=== PATIENT | female | born 1935 | race Two or more races ===

== ENCOUNTER 2024-09-10 09:12 | Inpatient (IN) | payer OTHER ==
[~2024-09-10] VITALS: Ht 157.5 cm; Wt 59.0 kg
[2024-09-10] MEDS ORDERED: COZAAR100 MG PO (09:24)
[2024-09-10] MEDS ORDERED: CELEXA20 MG PO (09:25)
[2024-09-10] MEDS ORDERED: ZEGERID OTC 201 EACH PO (09:25)
[2024-09-10] MEDS ORDERED: SYNTHROID88 MCG PO (09:25)
[2024-09-10] MEDS ORDERED: RISPERIDONE O0.25 MG PO (09:26)
[2024-09-10] MEDS ORDERED: JARDIANCE25 MG PO (09:26)
[2024-09-10] MEDS ORDERED: ARICEPT10 MG PO (09:27)
[2024-09-10] MEDS ORDERED: TOPROL XL100 M1 PO (09:27)
[2024-09-10] MEDS ORDERED: CLOPIDOGREL BIS75 MG PO (09:28)
[2024-09-10] MEDS ORDERED: GLIPIZIDE XL10 MG PO (09:28)
[2024-09-10] MEDS ORDERED: DIVALPROEX SOD250 MG PO (09:29)
[2024-09-10] MEDS ORDERED: MEMANTINE HCL10 MG PO (09:29)
[2024-09-10] MEDS ORDERED: DOXAZOSIN MESYLA4 MG PO (09:32)
[2024-09-10] MEDS ORDERED: NORVASC2.5 MG PO (09:32)
[2024-09-10] MEDS ORDERED: SIMVASTATIN80 MG PO (09:33)
[2024-09-10] MEDS ORDERED: MELATONIN10 MG (09:33)
[2024-09-10] MEDS ORDERED: LANTUS SOL100 UNIT/1 SQ (09:33)
--- NOTE | 2024-09-10 09:34 | NUR ---
PACIENTE ALERTA Y ORIENTADA EN PERSONA EN COMPANIA DE FAMILIAR QUIEN Y EN AMBULANCIA QUIEN REFIERE QUE ES TR[facility]LADADA DE [facility] POR FRACTURA DE FEMUR EN LA PIERNA DERECHA. SE OBSERVA PACIENTE PREVIAMENTE CANALIZADA EN MANO DERECHA CON ANGIO #20 EL CUAL SE ENCUENTRA PATENTE, JUANA DE EDEMA Y ERITEMA. SE OBSERVA PACIENTE CON SONDA URINARIA A GRAVEDAD CON COLOR AMARILLO JEFFREY Y JUANA DE SANGRADO.
[2024-09-10] MEDS ORDERED: MEPERIDINE HCL/PF 50 MG/ML VIAL IM STA (10:30)
--- NOTE | 2024-09-10 10:50 | NUR ---
SE ORIENTA A PACIENTE Y FAMILIAR SOBRE TRATAMIENTO MEDICO LA CUAL INDICA ENTENDER Y ACEPTAR. SE COLECTAN MUESTRAS DE LABORATORIO BAJO MEDIDAS ASEPTICAS Y SE ADMINSITRAN MEDICAMENTOS NATIVIDAD ORDEN MEDICA.
[2024-09-10 11:18] LABS: HEMOGLOBIN 9.1 g/dL (12.0-15.00); MEAN CELL VOLUME 83.4 fL (80.00-100.00); MEAN CORPUSCULAR HEMOGLOBIN 27.1 pg (27.00-32.0); MEAN CORPUSCULAR HGB CONC 32.4 g/dl (32.0-36.0); PLATELET COUNT 174 K/uL (150-450); RED BLOOD COUNT 3.36 M/uL (4.00-6.00); RED CELL DISTRIBUTION WIDTH 15.3 % (11.5-14.5)
[2024-09-10] MEDS ORDERED: CEFTRIAXONE SODIUM 2,000 MG in 0.9 % SODIUM CHLORIDE 100 ML IV SCH (11:52)
[2024-09-10] MEDS ORDERED: DONEPEZIL HCL 10 MG TABLET PO SCH (11:57)
[2024-09-10] MEDS ORDERED: 0.9 % SODIUM CHLORIDE 1,000 ML IV SCH (12:00)
[2024-09-10] MEDS ORDERED: MEPERIDINE HCL/PF 50 MG/ML VIAL IM PRN (12:00)
[2024-09-10] MEDS ORDERED: LOSARTAN POTASSIUM 100 MG TABLET PO NR (12:05)
[2024-09-10 12:09] LABS: ALBUMIN 3.2 gm/dL (3.4-5.0); BILIRUBIN TOTAL 0.57 mg/dL (0.3-1.2); BILIRUBIN,CONJUGATED 0.19 mg/dL (0.0-0.2); BILIRUBIN,UNCONJUGATED 0.38 mg/dL (0.0-0.6); CALCIUM 10.2 mg/dL (8.5-10.1); CREATININE SERUM 1.2 mg/dL (0.55-1.02); GFR 42.5; POTASSIUM 4.17 mEq/L (3.5-5.1); TOTAL PROTEIN 6.6 gm/dL (6.4-8.2)
[2024-09-10] MEDS ORDERED: INSULIN LISPRO 1,000 UNIT/10 ML UNITS SUBCUTANEO PRN (12:15)
[2024-09-10] MEDS ORDERED: DEXTROSE 50 % IN WATER 0.5 G/ML DISP.SYRIN IV PRN (12:15)
[2024-09-10 12:29] LABS: INR 0.94; PARTIAL THROMBOPLASTIN TIME 24.1 SECONDS (22.0-34.0); PROTHROMBIN TIME 10.3 SECONDS (9.0-11.5)
[2024-09-11 00:36] VITALS: BP 158/71; O2SAT 95
[2024-09-11] MEDS ORDERED: LEVOTHYROXINE SODIUM 88 MCG TABLET PO SCH (06:00)
[2024-09-11 07:24] LABS: PH,URINE 5.5 (5.0-8.0); URINE APPEARANCE Clear; URINE BILIRRUBIN Negative (NEGATIVE); URINE BLOOD NHT; URINE COLOR Yellow; URINE KETONE 15 (NEGATIVE); URINE LEUKOCYTE Negative; URINE NITRATE Negative; URINE PROTEIN 30 (NEGATIVE); URINE UROBILINOGEN 0.2 E.U./dl
[2024-09-11 07:27] LABS: URINE BACTERIA 143.5 uL (0.0-1933); URINE EPITHELIAL CELLS 15.7 uL (0.0-38.8); URINE RBC 8.2 uL (0.0-20.8); URINE WBC 29.3 uL (0.0-23.2)
[2024-09-11 07:28] LABS: URINE CAST 0.91 uL (0.0-1.40); URINE GLUCOSE >=1000 MG/DL (NEGATIVE)
[2024-09-11 08:00] VITALS: BP 148/82; O2SAT 95
[2024-09-11] MEDS ORDERED: LOSARTAN POTASSIUM 100 MG TABLET PO SCH (09:00)
[2024-09-11] MEDS ORDERED: RISPERIDONE 0.25 MG TABLET PO SCH (16:15)
[2024-09-11] MEDS ORDERED: METOPROLOL SUCCINATE 100 MG TAB.SR.24H PO SCH (16:16)
[2024-09-11 16:26] VITALS: BP 156/79; O2SAT 96
[2024-09-11] MEDS ORDERED: RIVAROXABAN 10 MG TAB PO SCH (17:00)
[2024-09-11] MEDS ORDERED: DIVALPROEX SODIUM 250 MG TABLET.DR PO SCH (17:00)
[2024-09-11] MEDS ORDERED: MEMANTINE HCL 10 MG TABLET PO SCH (17:00)
[2024-09-11] MEDS ORDERED: MELATONIN 5 MG TABLET PO SCH (21:00)
[2024-09-12] VITALS: BP 165/71; O2SAT 98
[2024-09-12 08:00] VITALS: BP 163/78; O2SAT 98
[2024-09-12] MEDS ORDERED: ENOXAPARIN SODIUM 30 MG/0.3 ML SYRINGE SUBCUTANEO SCH (09:00)
[2024-09-12 11:39] LABS: HEMATOCRIT 32.4 % (36.0-45.00); HEMOGLOBIN 10.4 g/dL (12.0-15.00); MEAN CELL VOLUME 84.8 fL (80.00-100.00); MEAN CORPUSCULAR HEMOGLOBIN 27.3 pg (27.00-32.0); MEAN CORPUSCULAR HGB CONC 32.1 g/dl (32.0-36.0); PLATELET COUNT 190 K/uL (150-450); RED BLOOD COUNT 3.82 M/uL (4.00-6.00); RED CELL DISTRIBUTION WIDTH 15.3 % (11.5-14.5)
[2024-09-12 12:47] LABS: ALBUMIN 2.8 gm/dL (3.4-5.0); BILIRUBIN TOTAL 0.83 mg/dL (0.3-1.2); CALCIUM 9.5 mg/dL (8.5-10.1); CREATININE SERUM 0.95 mg/dL (0.55-1.02); GFR 55.64; GLOBULINA 3.7 G/DL (2.4-3.5); POTASSIUM 4.56 mEq/L (3.5-5.1); TOTAL PROTEIN 6.5 gm/dL (6.4-8.2)
[2024-09-12 16:00] VITALS: BP 171/75; O2SAT 97
[2024-09-12] MEDS ORDERED: ENALAPRILAT DIHYDRATE 1.25 MG/ML VIAL IV PRN (20:30)
[2024-09-12] MEDS ORDERED: METOPROLOL SUCCINATE 50 MG TAB.SR.24H PO SCH (21:00)
[2024-09-13 01:00] VITALS: BP 124/80; O2SAT 96
[2024-09-13 08:00] VITALS: BP 170/90; O2SAT 96
[2024-09-13 08:00] LABS: HEMATOCRIT 32.2 % (36.0-45.00); HEMOGLOBIN 10.5 g/dL (12.0-15.00); MEAN CELL VOLUME 84.2 fL (80.00-100.00); MEAN CORPUSCULAR HEMOGLOBIN 27.6 pg (27.00-32.0); MEAN CORPUSCULAR HGB CONC 32.7 g/dl (32.0-36.0); PLATELET COUNT 229 K/uL (150-450); RED BLOOD COUNT 3.83 M/uL (4.00-6.00); RED CELL DISTRIBUTION WIDTH 15.1 % (11.5-14.5)
[2024-09-13] MEDS ORDERED: CHLORHEXIDINE GLUCONATE 240 ML BOTTLE TOP ONE (15:45)
[2024-09-13 16:47] VITALS: BP 166/71; O2SAT 96
[2024-09-13] MEDS ORDERED: MUPIROCIN 15 GM OINT..GM TUBE NASAL SCH (17:00)
[2024-09-14 00:12] VITALS: BP 178/85; O2SAT 96
[2024-09-14 08:43] VITALS: BP 170/80; O2SAT 98
[2024-09-14 17:00] VITALS: BP 157/66; O2SAT 98
[2024-09-15 00:38] VITALS: BP 166/73; O2SAT 98
[2024-09-15 06:59] LABS: HEMATOCRIT 32.1 % (36.0-45.00); HEMOGLOBIN 10.5 g/dL (12.0-15.00); MEAN CELL VOLUME 83.8 fL (80.00-100.00); MEAN CORPUSCULAR HEMOGLOBIN 27.3 pg (27.00-32.0); MEAN CORPUSCULAR HGB CONC 32.6 g/dl (32.0-36.0); PLATELET COUNT 259 K/uL (150-450); RED BLOOD COUNT 3.84 M/uL (4.00-6.00); RED CELL DISTRIBUTION WIDTH 14.8 % (11.5-14.5)
[2024-09-15 07:39] LABS: CALCIUM 9.5 mg/dL (8.5-10.1); CREATININE SERUM 0.76 mg/dL (0.55-1.02); GFR 71.82; POTASSIUM 4.28 mEq/L (3.5-5.1)
[2024-09-15 08:00] VITALS: BP 129/68; O2SAT 97
[2024-09-15] MEDS ORDERED: PROMETHAZINE HCL 50 MG/ML AMPUL IM PRN (19:45)
[2024-09-15] MEDS ORDERED: ONDANSETRON 4 MG TAB.RAPDIS PO PRN (19:45)
[2024-09-15] MEDS ORDERED: MEPERIDINE HCL/PF 50 MG/ML VIAL IM PRN (19:45)
[2024-09-15] MEDS ORDERED: SODIUM CHLORIDE 0.45 % 1,000 ML IV SCH (19:45)
[2024-09-15] MEDS ORDERED: ONDANSETRON HCL 2 MG/ML VIAL IV PRN (19:45)
[2024-09-15] MEDS ORDERED: ISOPROPYL ALCOHOL 30 ML OUNCE TOP ONE (20:00)
[2024-09-15] MEDS ORDERED: PERMETHRIN 60 GM TUBE TOP SCH (20:21)
[2024-09-15] MEDS ORDERED: ACETAMINOPHEN 325 MG TABLET PO SCH (21:00)
[2024-09-16] VITALS: BP 180/77; O2SAT 99
[2024-09-16 07:11] LABS: HEMATOCRIT 27.8 % (36.0-45.00); MEAN CELL VOLUME 85.3 fL (80.00-100.00); MEAN CORPUSCULAR HEMOGLOBIN 27.6 pg (27.00-32.0); MEAN CORPUSCULAR HGB CONC 32.3 g/dl (32.0-36.0); PLATELET COUNT 257 K/uL (150-450); RED BLOOD COUNT 3.26 M/uL (4.00-6.00)
[2024-09-16 08:00] VITALS: BP 182/77; O2SAT 96
[2024-09-16] MEDS ORDERED: PERMETHRIN 60 GM TUBE TOP SCH (09:00)
[2024-09-16] MEDS ORDERED: PANTOPRAZOLE SODIUM 40 MG TABLET.DR PO SCH (09:00)
[2024-09-16 16:00] VITALS: BP 142/85; O2SAT 95
[2024-09-16 20:14] LABS: HEMATOCRIT 33.9 % (36.0-45.00); HEMOGLOBIN 11.3 g/dL (12.0-15.00); MEAN CELL VOLUME 83.2 fL (80.00-100.00); MEAN CORPUSCULAR HEMOGLOBIN 27.8 pg (27.00-32.0); MEAN CORPUSCULAR HGB CONC 33.4 g/dl (32.0-36.0); PLATELET COUNT 251 K/uL (150-450); RED BLOOD COUNT 4.08 M/uL (4.00-6.00)
[2024-09-17 00:20] VITALS: BP 169/71; O2SAT 97
[2024-09-17 06:10] LABS: HEMATOCRIT 31.4 % (36.0-45.00); HEMOGLOBIN 10.5 g/dL (12.0-15.00); MEAN CELL VOLUME 83.5 fL (80.00-100.00); MEAN CORPUSCULAR HEMOGLOBIN 27.9 pg (27.00-32.0); MEAN CORPUSCULAR HGB CONC 33.4 g/dl (32.0-36.0); PLATELET COUNT 238 K/uL (150-450); RED BLOOD COUNT 3.76 M/uL (4.00-6.00); RED CELL DISTRIBUTION WIDTH 14.9 % (11.5-14.5)
[2024-09-17 07:50] VITALS: BP 200/88; O2SAT 99
[2024-09-17] MEDS ORDERED: SENNA/DOCUSATE SODIUM 1 TAB TABLET PO SCH (09:00)
[2024-09-17] MEDS ORDERED: NIFEDIPINE 30 MG TAB.SA.OSM PO NR (11:00)
[2024-09-17 17:00] VITALS: BP 167/75; O2SAT 98
[2024-09-18] VITALS: BP 177/84; O2SAT 99
[2024-09-18 08:16] VITALS: BP 141/63; O2SAT 95
[2024-09-18] MEDS ORDERED: NIFEDIPINE 30 MG TAB.SA.OSM PO SCH (09:00)
== END 2024-09-18 10:43 | DRG 482 ==
LOC: ER 09:12 → EDBD 10:02 → ER 10:02 → SEC-K 12:37 → SURG 12:37 → SURH 09-17 11:28
PROVIDERS: General Practice; Orthopaedic Surgery; ADMIT Internal Medicine; ATTEND Internal Medicine
PROC: 30233N1 Transfusion of Nonautologous Red Blood Cells into Peripheral Vein, Percutaneous Approach (ICD-10-PCS; 2024-09-12)
PROC: 0QS636Z Reposition Right Upper Femur with Intramedullary Internal Fixation Device, Percutaneous Approach (ICD-10-PCS; principal; 2024-09-15 13:45)
DX: S72.141A Displaced intertrochanteric fracture of right femur, initial encounter for closed fracture (principal); W13.3XXA Fall through floor, initial encounter; I10 Essential (primary) hypertension; E11.9 Type 2 diabetes mellitus without complications; E03.8 Other specified hypothyroidism; G30.9 Alzheimer's disease, unspecified; F02.80 Dementia in other diseases classified elsewhere, unspecified severity, without behavioral disturbance, psychotic disturbance, mood disturbance, and anxiety; D72.828 Other elevated white blood cell count; Y92.008 Other place in unspecified non-institutional (private) residence as the place of occurrence of the external cause; B86 Scabies; D64.9 Anemia, unspecified

== ENCOUNTER 2024-10-09 10:00 | Inpatient (IN) | payer OTHER ==
[~2024-10-09] VITALS: Ht 157.5 cm; Wt 59.9 kg
[~2024-10-09 10:00] MED LIST: ARICEPT10 MG PO; CELEXA20 MG PO; CLOPIDOGREL BIS75 MG PO; COZAAR100 MG PO; DIVALPROEX SOD250 MG PO; DOXAZOSIN MESYLA4 MG PO; GLIPIZIDE XL10 MG PO; JARDIANCE25 MG PO; LANTUS SOL100 UNIT/1 SQ; MELATONIN10 MG; MEMANTINE HCL10 MG PO; NORVASC2.5 MG PO; RISPERIDONE O0.25 MG PO; SIMVASTATIN80 MG PO; SYNTHROID88 MCG PO; TOPROL XL100 M1 PO; ZEGERID OTC 201 EACH PO
[2024-10-09] MEDS ORDERED: 0.9 % SODIUM CHLORIDE 1,000 ML IV SCH ×2 (10:15→12:00)
[2024-10-09] MEDS ORDERED: PIPERACILLIN/TAZOBACTAM SODIUM 3.375 GM VIAL IV ONE ×2 (10:15→10:37)
[2024-10-09 11:30] LABS: HEMOGLOBIN 14.2 g/dL (12.0-15.00); MEAN CELL VOLUME 87.9 fL (80.00-100.00); MEAN CORPUSCULAR HEMOGLOBIN 28.3 pg (27.00-32.0); MEAN CORPUSCULAR HGB CONC 32.2 g/dl (32.0-36.0); PLATELET COUNT 303 K/uL (150-450); RED BLOOD COUNT 5.01 M/uL (4.00-6.00)
[2024-10-09 11:31] LABS: RED CELL DISTRIBUTION WIDTH 18.7 % (11.5-14.5)
[2024-10-09] MEDS ORDERED: FAMOTIDINE/PF 20 MG in 0.9 % SODIUM CHLORIDE 100 ML IV SCH (11:54)
[2024-10-09] MEDS ORDERED: INSULIN LISPRO 1,000 UNIT/10 ML UNITS SUBCUTANEO PRN (12:00)
[2024-10-09] MEDS ORDERED: ACETAMINOPHEN 325 MG TABLET PO PRN (12:00)
[2024-10-09] MEDS ORDERED: DEXTROSE 50 % IN WATER 0.5 G/ML DISP.SYRIN IV PRN (12:00)
[2024-10-09] MEDS ORDERED: PIPERACILLIN/TAZOBACTAM SODIUM 3.375 GM in 0.9 % SODIUM CHLORIDE 100 ML IV SCH (12:00)
[2024-10-09 12:01] LABS: INR 1.06; PARTIAL THROMBOPLASTIN TIME 21.3 SECONDS (22.0-34.0); PROTHROMBIN TIME 11.5 SECONDS (9.0-11.5)
[2024-10-09 12:11] LABS: CREATININE SERUM 1.71 mg/dL (0.55-1.02); GFR 28.17; POTASSIUM 4.69 mEq/L (3.5-5.1)
[2024-10-09] MEDS ORDERED: SODIUM CHLORIDE 0.45 % 1,000 ML IV SCH (12:15)
[2024-10-09] MEDS ORDERED: ACETAMINOPHEN 500 MG GEL..CAP PO PRN ×2 (12:15)
[2024-10-09] MEDS ORDERED: RISPERIDONE 0.5 MG TABLET PO SCH (12:15)
[2024-10-09] MEDS ORDERED: MEPERIDINE HCL/PF 50 MG/ML VIAL IM PRN ×2 (12:15→17:45)
[2024-10-09] MEDS ORDERED: METOPROLOL TARTRATE 50 MG TABLET PO SCH (12:17)
[2024-10-09] MEDS ORDERED: MEMANTINE HCL 10 MG TABLET PO SCH (12:24)
[2024-10-09] MEDS ORDERED: ENALAPRILAT DIHYDRATE 1.25 MG/ML VIAL IV PRN (12:30)
[2024-10-09] MEDS ORDERED: FAMOTIDINE/PF 20 MG/2 ML VIAL ONE (12:36)
[2024-10-09] MEDS ORDERED: INSULIN LISPRO 1,000 UNIT/10 ML UNITS SUBCUTANEO ONE (12:37)
[2024-10-09] MEDS ORDERED: RISPERIDONE 0.25 MG TABLET PO SCH (13:00)
[2024-10-09 14:54] LABS: URINE APPEARANCE Turbid; URINE BILIRRUBIN Negative (NEGATIVE); URINE BLOOD Moderate; URINE COLOR Yellow; URINE KETONE 15 (NEGATIVE); URINE LEUKOCYTE Moderate; URINE NITRATE Negative; URINE UROBILINOGEN 0.2 E.U./dl
[2024-10-09 14:58] LABS: URINE BACTERIA 660.9 uL (0.0-1933); URINE EPITHELIAL CELLS 42.7 uL (0.0-38.8); URINE RBC 453.5 uL (0.0-20.8)
[2024-10-09 15:41] LABS: URINE CAST 0.87 uL (0.0-1.40); URINE GLUCOSE >=1000 MG/DL (NEGATIVE); URINE PROTEIN 100 (NEGATIVE); URINE WBC > 5548.3 uL (0.0-23.2); URINE YEAST MANY /hpf
[2024-10-09] MEDS ORDERED: INSULIN GLARGINE,HUM.REC.ANLOG 1,000 UNITS/10 ML UNITS SUBCUTANEO STA (16:18)
[2024-10-09] MEDS ORDERED: INSULIN LISPRO 1,000 UNIT/10 ML UNITS SUBCUTANEO SCH (17:00)
[2024-10-09 19:04] VITALS: BP 156/85; O2SAT 100
[2024-10-10] VITALS: BP 150/72; O2SAT 98
[2024-10-10] MEDS ORDERED: LEVOTHYROXINE SODIUM 88 MCG TABLET PO SCH (06:00)
[2024-10-10 08:00] VITALS: BP 190/85; O2SAT 96
[2024-10-10] MEDS ORDERED: HALOPERIDOL LACTATE 5 MG/ML AMPUL IM PRN (08:15)
[2024-10-10 16:00] VITALS: BP 179/88; O2SAT 99
[2024-10-10] MEDS ORDERED: INSULIN GLARGINE,HUM.REC.ANLOG 1,000 UNITS/10 ML UNITS SUBCUTANEO SCH (21:00)
[2024-10-10] MEDS ORDERED: INSULIN LISPRO 1,000 UNIT/10 ML UNITS SUBCUTANEO PRN (23:15)
[2024-10-11 01:13] VITALS: BP 115/67; O2SAT 98
[2024-10-11 09:05] LABS: ALBUMIN 2.6 gm/dL (3.4-5.0); BILIRUBIN TOTAL 0.47 mg/dL (0.3-1.2); CALCIUM 9.8 mg/dL (8.5-10.1); CREATININE SERUM 0.95 mg/dL (0.55-1.02); GFR 55.51; GLOBULINA 3.4 G/DL (2.4-3.5); POTASSIUM 3.07 mEq/L (3.5-5.1)
[2024-10-11 09:08] VITALS: BP 124/81; O2SAT 95
[2024-10-11 09:25] LABS: HEMATOCRIT 38.6 % (36.0-45.00); HEMOGLOBIN 12.6 g/dL (12.0-15.00); MEAN CELL VOLUME 86.5 fL (80.00-100.00); MEAN CORPUSCULAR HEMOGLOBIN 28.1 pg (27.00-32.0); MEAN CORPUSCULAR HGB CONC 32.5 g/dl (32.0-36.0); PLATELET COUNT 193 K/uL (150-450); RED BLOOD COUNT 4.47 M/uL (4.00-6.00); RED CELL DISTRIBUTION WIDTH 17.8 % (11.5-14.5)
[2024-10-11 16:32] VITALS: BP 182/84; O2SAT 99
[2024-10-11] MEDS ORDERED: DEXTROSE 5 % IN WATER 1,000 ML IV SCH (17:45)
[2024-10-11] MEDS ORDERED: POTASSIUM CHLORIDE/D5W 20 MEQ/1,000 ML PIGGYBAG IV SCH (18:00)
[2024-10-11 19:51] VITALS: BP 156/89
[2024-10-11] MEDS ORDERED: INSULIN GLARGINE,HUM.REC.ANLOG 1,000 UNITS/10 ML UNITS SUBCUTANEO SCH (21:00)
[2024-10-12 00:33] VITALS: BP 141/79; O2SAT 96
[2024-10-12 07:45] LABS: ALBUMIN 2.9 gm/dL (3.4-5.0); BILIRUBIN TOTAL 0.59 mg/dL (0.3-1.2); CALCIUM 10.1 mg/dL (8.5-10.1); CREATININE SERUM 0.99 mg/dL (0.55-1.02); GFR 52.93; GLOBULINA 3.8 G/DL (2.4-3.5); POTASSIUM 4.17 mEq/L (3.5-5.1); TOTAL PROTEIN 6.7 gm/dL (6.4-8.2); TSH 2.62 uIU/mL (0.358-3.74)
[2024-10-12 07:56] LABS: HEMATOCRIT 40.3 % (36.0-45.00); HEMOGLOBIN 13.4 g/dL (12.0-15.00); MEAN CELL VOLUME 85.5 fL (80.00-100.00); MEAN CORPUSCULAR HEMOGLOBIN 28.3 pg (27.00-32.0); MEAN CORPUSCULAR HGB CONC 33.2 g/dl (32.0-36.0); PLATELET COUNT 161 K/uL (150-450); RED BLOOD COUNT 4.72 M/uL (4.00-6.00); RED CELL DISTRIBUTION WIDTH 17.5 % (11.5-14.5)
[2024-10-12 08:00] VITALS: BP 154/79; O2SAT 95
[2024-10-12 16:32] VITALS: BP 157/70; O2SAT 100
[2024-10-13 00:31] VITALS: BP 141/82; O2SAT 98
[2024-10-13] MEDS ORDERED: SODIUM CHLORIDE 0.45 % 1,000 ML IV SCH (06:30)
[2024-10-13] MEDS ORDERED: INSULIN GLARGINE,HUM.REC.ANLOG 1,000 UNITS/10 ML UNITS SUBCUTANEO SCH (09:00)
[2024-10-13 10:30] VITALS: BP 172/81; O2SAT 96
[2024-10-13] MEDS ORDERED: POVIDONE-IODINE 118 ML BOTT TOP ONE ×2 (14:30→16:00)
[2024-10-13] MEDS ORDERED: CEFAZOLIN SODIUM 1,000 MG VIAL ONE (14:30)
[2024-10-13] MEDS ORDERED: VANCOMYCIN HCL 1,000 MG VIAL ONE ×2 (14:30→15:03)
[2024-10-13] MEDS ORDERED: VANCOMYCIN HCL 1,000 MG VIAL IR ONE (16:00)
[2024-10-13] MEDS ORDERED: CEFAZOLIN SODIUM 1,000 MG VIAL IV ONE (16:00)
[2024-10-13] MEDS ORDERED: DIVALPROEX SODIUM 250 MG TABLET.DR PO SCH (17:00)
[2024-10-13] MEDS ORDERED: ONDANSETRON 4 MG TAB.RAPDIS PO PRN (17:00)
[2024-10-13] MEDS ORDERED: ONDANSETRON HCL 2 MG/ML VIAL IV PRN (17:00)
[2024-10-13 18:22] VITALS: BP 141/72; O2SAT 91
[2024-10-14 01:28] VITALS: BP 189/99; O2SAT 100
[2024-10-14 08:43] VITALS: BP 160/82; O2SAT 100
[2024-10-14 11:23] LABS: CALCIUM 9.6 mg/dL (8.5-10.1); CREATININE SERUM 0.81 mg/dL (0.55-1.02); GFR 66.73; POTASSIUM 4.75 mEq/L (3.5-5.1)
[2024-10-14 16:00] VITALS: BP 170/80; O2SAT 97
[2024-10-15 00:10] VITALS: BP 128/85; O2SAT 96
[2024-10-15 08:00] VITALS: BP 193/88; O2SAT 98
[2024-10-16 01:33] VITALS: BP 134/76; O2SAT 96
[2024-10-16] MEDS ORDERED: INSULIN LISPRO 1,000 UNIT/10 ML UNITS SUBCUTANEO SCH (08:00)
[2024-10-16] MEDS ORDERED: INSULIN GLARGINE,HUM.REC.ANLOG 1,000 UNITS/10 ML UNITS SUBCUTANEO SCH (09:00)
[2024-10-16 09:30] VITALS: BP 137/96; O2SAT 100
[2024-10-16 16:00] VITALS: BP 181/80; O2SAT 100
[2024-10-16] MEDS ORDERED: CEFTAZIDIME/AVIBACTAM 1.25GM/100ML NSS PB IV SCH (17:00)
[2024-10-17] VITALS: BP 147/73; O2SAT 95
[2024-10-17 08:00] VITALS: BP 130/74; O2SAT 98
[2024-10-17 16:08] VITALS: BP 138/58; O2SAT 100
[2024-10-18 00:57] VITALS: BP 141/76; O2SAT 99
[2024-10-18 06:42] LABS: HEMATOCRIT 32.4 % (36.0-45.00); HEMOGLOBIN 10.5 g/dL (12.0-15.00); MEAN CELL VOLUME 85.9 fL (80.00-100.00); MEAN CORPUSCULAR HEMOGLOBIN 27.8 pg (27.00-32.0); MEAN CORPUSCULAR HGB CONC 32.4 g/dl (32.0-36.0); PLATELET COUNT 195 K/uL (150-450); RED BLOOD COUNT 3.76 M/uL (4.00-6.00); RED CELL DISTRIBUTION WIDTH 16.9 % (11.5-14.5)
[2024-10-18 07:30] LABS: CALCIUM 9.9 mg/dL (8.5-10.1); CREATININE SERUM 0.83 mg/dL (0.55-1.02); GFR 64.88; POTASSIUM 4.34 mEq/L (3.5-5.1)
[2024-10-18 08:00] VITALS: BP 170/80; O2SAT 96
[2024-10-18] MEDS ORDERED: INSULIN GLARGINE,HUM.REC.ANLOG 1,000 UNITS/10 ML UNITS SUBCUTANEO SCH (09:00)
[2024-10-18 16:44] VITALS: BP 180/82; O2SAT 96
[2024-10-19] VITALS: BP 113/67; O2SAT 96
[2024-10-19 07:27] LABS: HEMATOCRIT 31.1 % (36.0-45.00); RED BLOOD COUNT 3.6 M/uL (4.00-6.00)
[2024-10-19 08:00] VITALS: BP 122/69; BP 144/71; O2SAT 95
[2024-10-19] MEDS ORDERED: INSULIN GLARGINE,HUM.REC.ANLOG 1,000 UNITS/10 ML UNITS SUBCUTANEO SCH (09:00)
[2024-10-19 12:10] LABS: CALCIUM 9.4 mg/dL (8.5-10.1); CREATININE SERUM 0.86 mg/dL (0.55-1.02); GFR 62.27; POTASSIUM 3.97 mEq/L (3.5-5.1)
[2024-10-19 16:00] VITALS: BP 160/86; O2SAT 96
[2024-10-21 16:00] VITALS: BP 123/92; O2SAT 98
[2024-10-21 20:08] VITALS: BP 156/70
[2024-10-22] VITALS: BP 163/78; O2SAT 100
[2024-10-22 01:30] VITALS: BP 145/70; O2SAT 100
[2024-10-22 08:56] VITALS: BP 177/81; O2SAT 98
[2024-10-22 11:17] LABS: HEMATOCRIT 36.4 % (36.0-45.00); HEMOGLOBIN 11.7 g/dL (12.0-15.00); MEAN CELL VOLUME 85.8 fL (80.00-100.00); MEAN CORPUSCULAR HEMOGLOBIN 27.6 pg (27.00-32.0); MEAN CORPUSCULAR HGB CONC 32.2 g/dl (32.0-36.0); PLATELET COUNT 254 K/uL (150-450); RED BLOOD COUNT 4.24 M/uL (4.00-6.00); RED CELL DISTRIBUTION WIDTH 17.4 % (11.5-14.5)
[2024-10-22 11:57] LABS: ALBUMIN 2.5 gm/dL (3.4-5.0); BILIRUBIN TOTAL 0.35 mg/dL (0.3-1.2); CALCIUM 10.2 mg/dL (8.5-10.1); CREATININE SERUM 0.88 mg/dL (0.55-1.02); GFR 60.64; GLOBULINA 3.8 G/DL (2.4-3.5); POTASSIUM 4.12 mEq/L (3.5-5.1); TOTAL PROTEIN 6.3 gm/dL (6.4-8.2)
[2024-10-22 16:00] VITALS: BP 180/84; O2SAT 99
[2024-10-23 00:08] VITALS: BP 182/80; O2SAT 98
[2024-10-23 02:07] VITALS: BP 171/69; O2SAT 98
[2024-10-23 07:45] VITALS: BP 152/80; O2SAT 96
[2024-10-23] MEDS ORDERED: INSULIN GLARGINE,HUM.REC.ANLOG 1,000 UNITS/10 ML UNITS SUBCUTANEO SCH (09:00)
[2024-10-23 16:00] VITALS: BP 189/81; O2SAT 100
[2024-10-23 23:39] VITALS: BP 129/70; O2SAT 96
[2024-10-24 09:02] VITALS: BP 143/75; O2SAT 99
== END 2024-10-24 12:54 | DRG 857 ==
LOC: ER 10:02 → SURH 12:31
PROVIDERS: Emergency Medicine; Internal Medicine; Internal Medicine Endocrinology, Diabetes & Metabolism; Student in an Organized Health Care Education/Training Program; ADMIT Internal Medicine; ATTEND Internal Medicine
PROC: B246ZZZ Ultrasonography of Right and Left Heart (ICD-10-PCS; principal; 2024-10-09)
PROC: B345ZZZ Ultrasonography of Bilateral Common Carotid Arteries (ICD-10-PCS; 2024-10-09)
PROC: 0MBL0ZZ Excision of Right Hip Bursa and Ligament, Open Approach (ICD-10-PCS; 2024-10-10)
PROC: 0SB90ZZ Excision of Right Hip Joint, Open Approach (ICD-10-PCS; 2024-10-13)
PROC: 3E10X8Z Irrigation of Skin and Mucous Membranes using Irrigating Substance (ICD-10-PCS; 2024-10-13)
PROC: 02HV33Z Insertion of Infusion Device into Superior Vena Cava, Percutaneous Approach (ICD-10-PCS; 2024-10-14)
DX: T81.49XA Infection following a procedure, other surgical site, initial encounter (principal); E87.0 Hyperosmolality and hypernatremia; T81.328A Disruption or dehiscence of closure of other specified internal operation (surgical) wound, initial encounter; N17.8 Other acute kidney failure; Y65.8 Other specified misadventures during surgical and medical care; D72.828 Other elevated white blood cell count; E11.65 Type 2 diabetes mellitus with hyperglycemia; I10 Essential (primary) hypertension; G30.9 Alzheimer's disease, unspecified; F02.80 Dementia in other diseases classified elsewhere, unspecified severity, without behavioral disturbance, psychotic disturbance, mood disturbance, and anxiety; E03.8 Other specified hypothyroidism; E86.0 Dehydration; Z79.4 Long term (current) use of insulin